=== PATIENT | male | born 1990 | race Caucasian/White ===

== ENCOUNTER 2019-09-17 20:44 | Emergency (ER) | payer SELFPAY ==
[2019-09-17] MEDS ORDERED: TETRACAINE HCL 0.5% OPHTH SOL 1 DROP ONE (20:59)
[2019-09-17 21:05] VITALS: O2SAT 97
--- NOTE | 2019-09-17 21:09 | ED.PDOC ---
History of Present Illness - General Chief Complaint: Eye Problems Stated Complaint: got debris in right eye Time Seen by Provider: 09/17/19 21:06 Source: patient Exam Limitations: no limitations - History of Present Illness Initial Comments: The patient is a 29-year-old male presented emergency room secondary to the feeling that he got something in his right eye. He had apparently been working on a muffler when some debris got knocked out of it and went in his eye. This occurred about an hour and a half ago. There is generalized erythema where he has been rubbing it. No real visual acuity defect. No halos. It is uncomfortable but not really pain. Pupils are equally round and reactive. Timing/Duration: 1 hour Severity: moderate Improving Factors: nothing Worsening Factors: nothing Associated Symptoms: denies symptoms Review of Systems - Review of Systems Constitutional: States: no symptoms reported EENTM: States: see HPI Respiratory: States: no symptoms reported Cardiology: States: no symptoms reported Gastrointestinal/Abdominal: States: no symptoms reported Genitourinary: States: no symptoms reported Musculoskeletal: States: no symptoms reported Skin: States: no symptoms reported Neurological: States: no symptoms reported Endocrine: States: no symptoms reported Hematologic/Lymphatic: States: no symptoms reported All other Systems: No Change from Baseline Past Medical History (General) - Patient Medical History Hx Seizures: No Hx Stroke: No Hx Dementia: No Hx Asthma: No Hx of COPD: No Hx Cardiac Disorders: No Hx Congestive Heart Failure: No Hx Pacemaker: No Hx Hypertension: Yes - hx of Hx Thyroid Disease: No Hx Diabetes: No Hx Gastroesophageal Reflux: No Hx Renal Disease: No Hx Cancer: No Hx of HIV: No Hx Hepatitis C: No Hx MRSA: No Surgical History: no surgical history - Vaccination History Hx Tetanus, Diphtheria Vaccination: Yes Hx Influenza Vaccination: Yes Hx Pneumococcal Vaccination: No Immunizations Up to Date: Yes - Social History Hx Tobacco Use: Yes Hx Chewing Tobacco Use: No Hx Alcohol Use: Yes - 1 beer tonight Hx Substance Use: No Hx Substance Use Treatment: No Hx Depression: No Feels Threatened In Home Enviroment: No Feels Threatened In a Relationship: No Hx Physical Abuse: No Hx Emotional Abuse: No Hx Suspected Abuse: No - Activities of Daily Living Hospice Agency (if applicable):: None - Female History Patient is a Female of Child Bearing Age (10 -59 yrs old): No Family Medical History - Family History Mother Family History: No Known Physical Exam - Physical Exam General Appearance: Alert, No apparent distress Eye Exam: right other, left normal Ears, Nose, Throat: hearing grossly normal Neck: full range of motion Respiratory: no respiratory distress, no accessory muscle use Cardiovascular/Chest: normal peripheral pulses, no edema Peripheral Pulses: radial,right: 2+, radial,left: 2+ Rectal Exam: deferred Extremity: normal range of motion, normal capillary refill 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 After tetracaine drops were applied, a magnifier was used and a hair with attached debris was found along the lower eyelid. It was removed with a cotton tip swab. Patient tolerated this well. I see no evidence of any significant corneal abrasion or eye injury otherwise. Motrin can be used for discomfort tonight. ER warnings are given. [email or web address] [email or web address] [id number] Departure - Departure Clinical Impression: Foreign body, eye Qualifiers: Encounter type: initial encounter Laterality: right Qualified Code(s): T15.91XA - Foreign body on external eye, part unspecified, right eye, initial encounter Disposition: Discharge to Home or Self Care Condition: Fair Departure Forms: ED Discharge - Pt. Copy, Patient Portal Self Enrollment Instructions: DI for Eye Pain Diet: regular diet Activity: increase activity as tolerated Additional Instructions: The patient is a 29-year-old male presented emergency room with feeling of a foreign body in his right eye for the last hour and a half. After tetracaine drops were applied, a magnifier was used and a hair with attached debris was found along the lower eyelid. It was removed with a cotton tip swab. Patient tolerated this well. I see no evidence of any significant corneal abrasion or eye injury otherwise. Motrin can be used for discomfort tonight. ER warnings are given.
[2019-09-17 21:35] VITALS: BP 130/81
[2019-09-17 21:39] VITALS: TEMP 98.6
== END 2019-09-17 21:15 | disposition home or self-care (01) ==
LOC: ER 20:44
DX: T15.11XA Foreign body in conjunctival sac, right eye, initial encounter (principal); Y93.89 Activity, other specified; Y92.9 Unspecified place or not applicable

== ENCOUNTER 2019-09-22 19:17 | Emergency (ER) | payer SELFPAY ==
[2019-09-22] MEDS ORDERED: FLUORESCEIN SODIUM OPHTH STRIP ONE (19:26)
--- NOTE | 2019-09-22 19:26 | ED.PDOC ---
History of Present Illness - General Chief Complaint: Eye Problems Stated Complaint: something in left eye Time Seen by Provider: 09/22/19 19:25 Source: patient - History of Present Illness Initial Comments: 29-year-old male who presents with chief complaint of left eye pain. Onset about 2 hours ago while at work. 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 He believes possibly a tiny metal shaving got into the eye. Reports sensation of foreign body at the approximately 1 o'clock position of the upper eye. Reports constant moderate irritating pain, worse when he blinks and looks to the left. He tried flushing the eye with some water without relief. Denies any redness or swelling or discharge. Denies any blurry vision. He has not taken any medication for pain. Allergies/Adverse Reactions: Allergies NO KNOWN ALLERGY Allergy (Verified 09/22/19 19:30) Home Medications: Ambulatory Orders NK 09/22/19 Review of Systems - Review of Systems Review of Systems: 09/22/19 19:58 as per HPI All other Systems: Reviewed and Negative Past Medical History (General) - Patient Medical History Hx Seizures: No Hx Stroke: No Hx Dementia: No Hx Asthma: No Hx of COPD: No Hx Cardiac Disorders: No Hx Congestive Heart Failure: No Hx Pacemaker: No Hx Hypertension: Yes - hx of Hx Thyroid Disease: No Hx Diabetes: No Hx Gastroesophageal Reflux: No Hx Renal Disease: No Hx Cancer: No Hx of HIV: No Hx Hepatitis C: No Hx MRSA: No - Vaccination History Hx Tetanus, Diphtheria Vaccination: Yes Hx Influenza Vaccination: Yes Hx Pneumococcal Vaccination: No - Social History Hx Tobacco Use: Yes Hx Chewing Tobacco Use: No Hx Alcohol Use: Yes - 1 beer tonight Hx Substance Use: No Hx Substance Use Treatment: No Hx Depression: No Hx Physical Abuse: No Hx Emotional Abuse: No Hx Suspected Abuse: No Family Medical History - Family History Mother Family History: No Known Physical Exam - Physical Exam General Appearance: Alert, Comfortable, No apparent distress Eye Exam: right normal, left other - <1 mm speck foreign body noted to be embedded in the lateral aspect of the conjunctiva of the left upper eyelid. No ocular foreign bodies or erythema noted. Fluorescein staining revealed no corneal abrasions. 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 Consider also corneal abrasion, intraocular foreign body, conjunctivitis, keratitis, other. -Copious flushing of the left eye with normal saline seemed to washout the tiny speck foreign body which I suspect was a microscopic metallic shaving. No corneal abrasions seen present. Will put the patient on erythromycin topical antibiotic ointment 4 times daily for 7 days. Advised to follow-up tomorrow with optometry clinic for repeat evaluation of the eye if he is still experiencing any discomfort. Discharge home in good condition, return warnings discussed at length. Continue to do [id number] analgesics as needed for pain. Sanford Burris MD Billing #[id number] Departure - Departure Clinical Impression: Foreign body of left eyelid Time of Disposition: 20:04 Disposition: Discharge to Home or Self Care Condition: Good Departure Forms: ED Discharge - Pt. Copy, Patient Portal Self Enrollment Instructions: DI for Eye Pain, Foreign Body in Eye (DC) Diet: resume usual diet Activity: increase activity as tolerated Home Medications: Ambulatory Orders NK 09/22/19 Additional Instructions: Continue to always wear protective eyewear when grinding metal or using other power tools or equipment. Continue to use the antibiotic eye ointment as directed 4 times daily to the left eye. May continue to flush the eye with artificial tears rewetting eyedrops as often as needed for eye dryness or discomfort. You may also continue to use ibuprofen 600 mg every 6 hours as needed for pain in addition to Tylenol as needed. If you continue to have pain or discomfort or sensation of foreign body in the left eye in the next 12 to 24 hours follow-up with the road supervisor in town for repeat eye exam or you may also return to the emergency room for further evaluation. Also return to the ED if you develop any other concerning symptoms such as rapidly worsening redness or discharge from the eye, visual disturbance, rapidly worsening or severe headache, etc. Otherwise follow-up with your primary care physician as scheduled or sooner as needed.
[2019-09-22 19:30] VITALS: TEMP 98.3; O2SAT 99
[2019-09-22] MEDS ORDERED: TETRACAINE HCL 0.5% OPHTH SOL 1 DROP ONE (19:38)
[2019-09-22] MEDS ORDERED: TETRACAINE HCL 0.5% OPHTH SOL 1 DROP LEFT_EYE ONE (19:54)
[2019-09-22] MEDS ORDERED: ERYTHROMYCIN OPHTH OINT 1 APPLIC LEFT_EYE ONE (19:55)
[2019-09-22 20:07] VITALS: BP 129/88
== END 2019-09-22 20:13 | disposition home or self-care (01) ==
LOC: ER 19:17
DX: T15.12XA Foreign body in conjunctival sac, left eye, initial encounter (principal); Y99.0 Civilian activity done for income or pay; Y92.9 Unspecified place or not applicable; Z87.891 Personal history of nicotine dependence